=== PATIENT | female | born 1965 | race Two or more races ===

== ENCOUNTER 2020-01-21 11:39 | Outpatient (CLI) | payer OTHER | END 2020-01-21 12:00 | disposition home or self-care (01) | LOC: MAMO-SONO 11:39 | PROVIDERS: ATTEND Internal Medicine Pulmonary Disease | DX: N64.59 Other signs and symptoms in breast (principal); Z12.31 Encounter for screening mammogram for malignant neoplasm of breast ==

== ENCOUNTER 2020-03-07 14:19 | Outpatient (CLI) | payer OTHER | END 2020-03-07 14:26 | disposition home or self-care (01) | LOC: RAD 14:19 | DX: M62.838 Other muscle spasm (principal); M54.5 Low back pain ==

== ENCOUNTER 2023-08-08 15:29 | Emergency (ER) | payer OTHER ==
[~2023-08-08] VITALS: Ht 152.4 cm; Wt 68.0 kg
== END 2023-08-08 18:47 | disposition home or self-care (01) ==
LOC: ER 15:30
DX: S13.4XXA Sprain of ligaments of cervical spine, initial encounter (principal); S09.90XA Unspecified injury of head, initial encounter; V49.9XXA Car occupant (driver) (passenger) injured in unspecified traffic accident, initial encounter; Y93.9 Activity, unspecified; Y92.413 State road as the place of occurrence of the external cause; Y99.9 Unspecified external cause status